=== PATIENT | male | born 2000 | race Caucasian/White ===

== ENCOUNTER 2021-10-26 11:25 | Emergency (ER) | payer OTHER, SELFPAY ==
--- NOTE | ~2021-10-26 | XR_ITS ---
EXAMINATION: XR femur RT min 2V DATE: 10/26/2021 12:21 INDICATION: Right thigh injury. TECHNIQUE: 2 views of right femur on 4 radiographs were obtained. COMPARISON: None. FINDINGS: Bone alignment is normal. No fracture. Joint spaces are normal. There is a small knee joint effusion. IMPRESSION: 1. Small knee joint effusion. Reviewed, dictated and finalized at location A.
[2021-10-26 11:30] VITALS: BP 156/99; PULSE 94; RESP 20; TEMP 36.6; O2SAT 100
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
[2021-10-26 13:15] VITALS: BP 122/84; PULSE 68; RESP 17; O2SAT 99
[2021-10-26] MEDS: KETOROLAC (*BKC) 60 MG/2 ML VIAL IM (13:28)
== END 2021-10-26 13:49 | disposition home or self-care (01) ==
PROVIDERS: Emergency Provider Nurse Practitioner Family
DX: S70.11XA Contusion of right thigh, initial encounter (principal); W51.XXXA Accidental striking against or bumped into by another person, initial encounter
CPT/HCPCS: 73552; 96372; 99283; J1885